=== PATIENT | female | born 1955 | race Caucasian/White ===

== ENCOUNTER 2016-08-28 14:50 | Inpatient (IN) | payer MEDICAID ==
[~2016-08-28] VITALS: Ht 167.6 cm; Wt 59.0 kg
[2016-08-28] MEDS ORDERED: IV NS 0.9% 1,000 ML BAG IV ONE ×2 (16:00→20:00)
[2016-08-28] MEDS ORDERED: ONDANSETRON HCL/PF 4 MG/2 ML VIAL IVP ONE (16:00)
[2016-08-28] MEDS ORDERED: ONDANSETRON HCL/PF 4 MG/2 ML VIAL ONE (16:11)
[2016-08-28] MEDS ORDERED: IV NS 0.9% 1,000 ML ONE ×2 (16:11→22:11)
[2016-08-28] MEDS ORDERED: IV SET PRIMARY PUMP SET 1 EA INFUS.SET MC ONE ×2 (16:11→22:11)
[2016-08-28 16:23] LABS: BASOPHILS # (AUTO) 0.1 /CMM (0.0-0.2); DIFF TOTAL % 100 %; EOSINOPHILS % (AUTO) 0.2 % (0.0-6.0); HEMATOCRIT 35 % (33-45); HEMOGLOBIN 11.6 g/dL (11.5-14.8); LYMPHOCYTES # (AUTO) 1.9 /CMM (0.8-4.8); LYMPHOCYTES % (AUTO) 12.9 % (20.0-44.0); MEAN CORPUSCULAR HEMOGLOBIN 28 PG (26.0-33.0); MEAN CORPUSCULAR HGB CONC 33 g/dl (31.0-36.0); MEAN CORPUSCULAR VOLUME 85 fL (82-100); MONOCYTES # (AUTO) 1.4 /CMM (0.1-1.30); NEUTROPHILS % (AUTO) 75.9 % (43.0-81.0); PLATELET COUNT (AUTO) 437 /CMM (150-450); RED BLOOD CELL COUNT(AUTO) 4.18 MIL/uL (4.0-5.2); WHITE BLOOD COUNT (AUTO) 14.4 K/uL (4.3-11.0)
[2016-08-28] MEDS ORDERED: CALC600T12 PO (16:23)
[2016-08-28] MEDS ORDERED: CHOL400T11 PO (16:23)
[2016-08-28 16:40] LABS: ANION GAP 15 (5-14); CALCIUM, SERUM 9.2 mg/dL (8.5-10.1); CARBON DIOXIDE 25 mmol/L (21-32); CHLORIDE 95 mmol/L (98-107); CREATININE 0.5 mg/dL (0.6-1.3); GFR 125 mL/min (>60); GLUCOSE 96 mg/dL (74-106); POTASSIUM 3.7 mmol/L (3.5-5.1); SODIUM SERUM 131 mmol/L (136-145); UREA NITROGEN, BLOOD 17 mg/dL (7-18)
[2016-08-28 16:42] LABS: INR 1.19 (0.87-1.13); PROTHROMBIN TIME 12.5 SECS (9.5-12.7)
[2016-08-28 16:46] LABS: ALANINE AMINOTRANSFERASE 49 U/L (12-78); ALBUMIN 2.2 g/dL (3.4-5.0); ASPARTATE AMINOTRANSFERASE 132 U/L (15-37); BILIRUBIN,DIRECT 0.3 mg/dL (0.0-0.2); BILIRUBIN,TOTAL 0.8 mg/dL (0.2-1.0); INDIRECT BILIRUBIN 0.5 mg/dL (0.0-1.1); TOTAL PROTEIN, SERUM 7.2 g/dL (6.4-8.2)
[2016-08-28 17:20] LABS: TROPONIN I < 0.017 ng/mL (0.00-0.056)
[2016-08-28] MEDS ORDERED: ONDANSETRON HCL/PF 4 MG/2 ML VIAL IV PRN (20:00)
[2016-08-28] MEDS ORDERED: IBUP100O14 PO (21:10)
[2016-08-28] MEDS ORDERED: IBUP100T8 PO (21:14)
[2016-08-28] MEDS ORDERED: IV NS 0.9% 1,000 ML IV SCH (21:30)
[2016-08-28 22:00] VITALS: BP 120/88
[2016-08-28] MEDS ORDERED: ENOXAPARIN SODIUM 30 MG/0.3 ML DISP.SYRIN SQ SCH (22:30)
[2016-08-28] MEDS ORDERED: ENOXAPARIN SODIUM 30 MG/0.3 ML DISP.SYRIN ONE (23:24)
[2016-08-28] MEDS: IV NS 0.9% 1,000 ML IV SCH (23:30)
[2016-08-28] MEDS ORDERED: IBUPROFEN 600 MG TABLET PO ONE (23:34)
[2016-08-29] MEDS ORDERED: ACETAMINOPHEN 325 MG TABLET PO PRN
[2016-08-29] MEDS ORDERED: IBUPROFEN 600 MG TABLET PO PRN
[2016-08-29 04:00] VITALS: BP 125/78
[2016-08-29] MEDS ORDERED: IV NS 0.9% 1,000 ML ONE (05:43)
[2016-08-29] MEDS: IV NS 0.9% 1,000 ML IV SCH ×3 (06:30→18:09)
[2016-08-29 08:00] VITALS: BP 103/71
[2016-08-29] MEDS ORDERED: Z GUARD REMEDY 2 OZ OINT TP PRN (08:30)
[2016-08-29 16:00] VITALS: BP 120/73
[2016-08-29] MEDS: CALCIUM CARBONATE (1250) 500 MG TABLET PO SCH (16:16)
[2016-08-29] MEDS: CHOLECALCIFEROL (VITAMIN D 3) 400 UNIT TABLET PO SCH (16:16)
[2016-08-29] MEDS: ONDANSETRON HCL/PF 4 MG/2 ML VIAL IV PRN (18:49)
[2016-08-29 20:00] VITALS: BP 118/73
[2016-08-29] MEDS: ENOXAPARIN SODIUM 30 MG/0.3 ML DISP.SYRIN SQ SCH (22:46)
[2016-08-29] MEDS ORDERED: HYDROCODONE/APAP 5/325MG 1 EACH TABLET PO PRN (23:00)
[2016-08-29] MEDS ORDERED: SOD FERRIC GLUC 125 MG in IV NS 0.9% 100 ML IV SCH (23:00)
[2016-08-29] MEDS ORDERED: Magnesium 1GM/D5W 100ML PREMIX PIGGYBACK IV ONE (23:00)
[2016-08-29] MEDS ORDERED: SOD FERRIC GLUC 62.5 MG/5 ML AMPUL IV ONE (23:09)
[2016-08-29] MEDS ORDERED: IV NS 0.9% 100 ML IV ONE (23:46)
[2016-08-29] MEDS ORDERED: Magnesium 1GM/D5W 100ML PREMIX 200 ML IV ONE (23:47)
[2016-08-29] MEDS ORDERED: SECONDARY IV SET 1 EA INFUS.SET MC ONE (23:56)
[2016-08-29] MEDS ORDERED: IV SET PRIMARY PUMP SET 1 EA INFUS.SET MC ONE (23:57)
[2016-08-30] MEDS: Magnesium 1GM/D5W 100ML PREMIX 100 ML IV SCH ×2 (00:05→01:51)
[2016-08-30] MEDS ORDERED: SOD FERRIC GLUC 62.5 MG/5 ML AMPUL IV ONE (00:05)
[2016-08-30] MEDS ORDERED: LIDOCAINE 5% (PATCH) 1 EA PATCH TP ONE (00:06)
[2016-08-30] MEDS ORDERED: SECONDARY IV SET 1 EA INFUS.SET MC ONE (00:14)
[2016-08-30] MEDS: LIDOCAINE 5% (PATCH) 1 EA PATCH TP SCH ×2 (00:20→23:05)
[2016-08-30 04:00] VITALS: BP 120/73
[2016-08-30 06:40] LABS: BASOPHILS % (AUTO) 0.3 % (0.0-2.0); DIFF TOTAL % 100 %; EOSINOPHILS % (AUTO) 0.3 % (0.0-6.0); HEMATOCRIT 29 % (33-45); HEMOGLOBIN 9.6 g/dL (11.5-14.8); LYMPHOCYTES # (AUTO) 1.7 /CMM (0.8-4.8); LYMPHOCYTES % (AUTO) 15.8 % (20.0-44.0); MEAN CORPUSCULAR HEMOGLOBIN 28 PG (26.0-33.0); MEAN CORPUSCULAR HGB CONC 33 g/dl (31.0-36.0); MEAN CORPUSCULAR VOLUME 86 fL (82-100); MONOCYTES # (AUTO) 1.5 /CMM (0.1-1.30); MONOCYTES % (AUTO) 13.7 % (2.0-12.0); NEUTROPHILS # (AUTO) 7.6 /CMM (1.8-8.9); NEUTROPHILS % (AUTO) 69.9 % (43.0-81.0); PLATELET COUNT (AUTO) 361 /CMM (150-450); RED BLOOD CELL COUNT(AUTO) 3.42 MIL/uL (4.0-5.2); WHITE BLOOD COUNT (AUTO) 10.9 K/uL (4.3-11.0)
[2016-08-30 06:49] LABS: ALBUMIN 1.7 g/dL (3.4-5.0); BILIRUBIN,TOTAL 0.6 mg/dL (0.2-1.0); CALCIUM, SERUM 7.6 mg/dL (8.5-10.1); CREATININE 0.5 mg/dL (0.6-1.3); POTASSIUM 3.3 mmol/L (3.5-5.1); TOTAL PROTEIN, SERUM 5.9 g/dL (6.4-8.2)
[2016-08-30 07:49] LABS: KETONES,URINE NEGATIVE (NEGATIVE); LEUKOCYTE ESTERASE ,URINE NEGATIVE (NEGATIVE)
[2016-08-30 07:50] LABS: ADD UA MICROSCOPIC YES
[2016-08-30 07:54] LABS: ADD URINE CULTURE NO; RBC,URINE 0-2 /HPF (0-2); WBC,URINE NONE SEEN /HPF (0-3)
[2016-08-30 08:00] VITALS: BP 114/71
[2016-08-30] MEDS: CALCIUM CARBONATE (1250) 500 MG TABLET PO SCH ×2 (09:40→17:44)
[2016-08-30] MEDS: CHOLECALCIFEROL (VITAMIN D 3) 400 UNIT TABLET PO SCH ×2 (09:40→17:44)
[2016-08-30] MEDS: IV NS 0.9% 1,000 ML IV SCH ×2 (10:25→23:05)
[2016-08-30] MEDS: ONDANSETRON HCL/PF 4 MG/2 ML VIAL IV PRN (12:12)
[2016-08-30] MEDS ORDERED: POTASSIUM CHLORIDE 20 MEQ TAB.PRT.SR PO SCH (14:00)
[2016-08-30] MEDS: SOD FERRIC GLUC 125 MG in IV NS 0.9% 100 ML IV SCH (14:43)
[2016-08-30 16:00] VITALS: BP 123/74
[2016-08-30 20:00] VITALS: BP 122/81
[2016-08-30] MEDS: POLYETHYLENE GLYCOL 3350 17 GM POWD.PACK PO SCH (21:12)
[2016-08-30] MEDS: ENOXAPARIN SODIUM 30 MG/0.3 ML DISP.SYRIN SQ SCH (21:13)
[2016-08-31 07:57] LABS: CALCIUM, SERUM 8.3 mg/dL (8.5-10.1); CREATININE 0.5 mg/dL (0.6-1.3); POTASSIUM 3.6 mmol/L (3.5-5.1)
[2016-08-31 08:00] VITALS: BP 127/85
[2016-08-31] MEDS: CHOLECALCIFEROL (VITAMIN D 3) 400 UNIT TABLET PO SCH ×2 (08:37→16:50)
[2016-08-31] MEDS: CALCIUM CARBONATE (1250) 500 MG TABLET PO SCH ×2 (08:37→16:50)
[2016-08-31] MEDS: IV NS 0.9% 1,000 ML IV SCH (12:10)
[2016-08-31 16:00] VITALS: BP 124/79
[2016-08-31] MEDS: SOD FERRIC GLUC 125 MG in IV NS 0.9% 100 ML IV SCH (16:07)
[2016-08-31 20:00] VITALS: BP 139/85
[2016-08-31] MEDS: ENOXAPARIN SODIUM 30 MG/0.3 ML DISP.SYRIN SQ SCH (21:00)
[2016-08-31] MEDS: POLYETHYLENE GLYCOL 3350 17 GM POWD.PACK PO SCH (21:03)
[2016-08-31] MEDS ORDERED: LIDOCAINE 5% (PATCH) 1 EA PATCH TP SCH (21:30)
[2016-08-31 22:00] VITALS: BP 139/85
[2016-09-01] MEDS: IV NS 0.9% 1,000 ML IV SCH ×2 (01:42→12:23)
[2016-09-01 07:02] LABS: ALBUMIN 1.8 g/dL (3.4-5.0); BILIRUBIN,TOTAL 0.6 mg/dL (0.2-1.0); CALCIUM, SERUM 8.4 mg/dL (8.5-10.1); CREATININE 0.5 mg/dL (0.6-1.3); POTASSIUM 3.8 mmol/L (3.5-5.1); TOTAL PROTEIN, SERUM 6.2 g/dL (6.4-8.2)
[2016-09-01 08:00] VITALS: BP 136/83
[2016-09-01] MEDS: CHOLECALCIFEROL (VITAMIN D 3) 400 UNIT TABLET PO SCH ×2 (08:51→16:18)
[2016-09-01] MEDS: CALCIUM CARBONATE (1250) 500 MG TABLET PO SCH ×2 (08:51→16:18)
[2016-09-01] MEDS: Magnesium 1GM/D5W 100ML PREMIX 100 ML IV SCH ×2 (12:06→13:17)
[2016-09-01 16:00] VITALS: BP_SYST 109; BP_SYST 112; BP_DIAS 68; BP_DIAS 71
[2016-09-01] MEDS ORDERED: SOD FERRIC GLUC 125 MG in IV NS 0.9% 100 ML IV ONE (16:30)
== END 2016-09-01 19:45 | disposition home health service (06) | DRG 422 ==
LOC: ER 14:51 → MED 18:41
PROVIDERS: ADMIT Family Medicine; ATTEND Family Medicine
DX: E86.0 Dehydration (principal); R64 Cachexia; J90 Pleural effusion, not elsewhere classified; I95.9 Hypotension, unspecified; C50.912 Malignant neoplasm of unspecified site of left female breast; E44.0 Moderate protein-calorie malnutrition; N39.0 Urinary tract infection, site not specified; G62.9 Polyneuropathy, unspecified; E87.1 Hypo-osmolality and hyponatremia; G47.33 Obstructive sleep apnea (adult) (pediatric); R32 Unspecified urinary incontinence; E87.6 Hypokalemia; I10 Essential (primary) hypertension; M81.0 Age-related osteoporosis without current pathological fracture; Z90.12 Acquired absence of left breast and nipple; Z85.3 Personal history of malignant neoplasm of breast; D64.9 Anemia, unspecified; R00.0 Tachycardia, unspecified; M19.90 Unspecified osteoarthritis, unspecified site; M70.62 Trochanteric bursitis, left hip; E83.42 Hypomagnesemia; Z68.21 Body mass index [BMI] 21.0-21.9, adult; R51 Headache; I25.10 Atherosclerotic heart disease of native coronary artery without angina pectoris; R91.8 Other nonspecific abnormal finding of lung field
CPT/HCPCS: 36415; 71010-TC; 80048-TC; 80053-TC; 80076-TC; 81000-TC; 82746; 83540-TC; 83735-TC; 84484-TC; 85025-TC; 85730-TC; 87081-TC; 87086-TC; 92611-TC; 97001-TC; 97116-TC; 97530-TC; A4606; J1650; J2405; J2916; J3475; J7030; Z7610

== ENCOUNTER 2016-09-04 12:52 | Inpatient (IN) | payer MEDICAID ==
[~2016-09-04] VITALS: Ht 165.1 cm; Wt 49.9 kg
[~2016-09-04 12:52] MED LIST: CALC600T12 PO; CHOL400T11 PO; IBUP100T8 PO
[2016-09-04] MEDS ORDERED: MORPHINE SULFATE INJ 4 MG/ML DISP.SYRIN ONE (14:49)
[2016-09-04] MEDS ORDERED: IV NS 0.9% 500 ML IV ONE (14:50)
[2016-09-04] MEDS ORDERED: ONDANSETRON HCL/PF 4 MG/2 ML VIAL ONE (14:50)
[2016-09-04] MEDS ORDERED: ONDANSETRON HCL/PF 4 MG/2 ML VIAL IVP ONE (15:00)
[2016-09-04] MEDS ORDERED: MORPHINE SULFATE INJ 2 MG/ML DISP.SYRIN IV ONE (15:00)
[2016-09-04] MEDS ORDERED: IV NS 0.9% 500 ML BAG IV ONE (15:00)
[2016-09-04 15:13] LABS: BASOPHILS # (AUTO) 0.5 /CMM (0.0-0.2); BASOPHILS % (AUTO) 2.8 % (0.0-2.0); DIFF TOTAL % 100 %; EOSINOPHILS % (AUTO) 0.1 % (0.0-6.0); HEMATOCRIT 31 % (33-45); HEMOGLOBIN 10.2 g/dL (11.5-14.8); LYMPHOCYTES # (AUTO) 2.2 /CMM (0.8-4.8); LYMPHOCYTES % (AUTO) 11.4 % (20.0-44.0); MEAN CORPUSCULAR HEMOGLOBIN 28 PG (26.0-33.0); MEAN CORPUSCULAR HGB CONC 33 g/dl (31.0-36.0); MEAN CORPUSCULAR VOLUME 84 fL (82-100); MONOCYTES # (AUTO) 1.8 /CMM (0.1-1.30); MONOCYTES % (AUTO) 9.4 % (2.0-12.0); NEUTROPHILS # (AUTO) 14.4 /CMM (1.8-8.9); NEUTROPHILS % (AUTO) 76.3 % (43.0-81.0); PLATELET COUNT (AUTO) 378 /CMM (150-450); RED BLOOD CELL COUNT(AUTO) 3.62 MIL/uL (4.0-5.2); WHITE BLOOD COUNT (AUTO) 18.9 K/uL (4.3-11.0)
[2016-09-04 15:20] LABS: ANION GAP 14 (5-14); CALCIUM, SERUM 8.7 mg/dL (8.5-10.1); CARBON DIOXIDE 26 mmol/L (21-32); CHLORIDE 97 mmol/L (98-107); CREATININE 0.6 mg/dL (0.6-1.3); GFR 101 mL/min (>60); GLUCOSE 122 mg/dL (74-106); POTASSIUM 3.5 mmol/L (3.5-5.1); SODIUM SERUM 133 mmol/L (136-145); UREA NITROGEN, BLOOD 21 mg/dL (7-18)
[2016-09-04] MEDS ORDERED: IOHEXOL-350 100 ML VIAL IV ONE (15:22)
[2016-09-04] MEDS ORDERED: CT SWABBABLE VALVE TRANS SET 1 EA INFUS.SET MC ONE (15:23)
[2016-09-04] MEDS ORDERED: IV NS 0.9% 250 ML IV ONE (15:23)
[2016-09-04 15:25] LABS: ALANINE AMINOTRANSFERASE 41 U/L (12-78); ALBUMIN 1.9 g/dL (3.4-5.0); ASPARTATE AMINOTRANSFERASE 122 U/L (15-37); BILIRUBIN,DIRECT 0.5 mg/dL (0.0-0.2); BILIRUBIN,TOTAL 1.1 mg/dL (0.2-1.0); INDIRECT BILIRUBIN 0.6 mg/dL (0.0-1.1); INR 1.36 (0.87-1.13); PROTHROMBIN TIME 14.3 SECS (9.5-12.7); TOTAL PROTEIN, SERUM 6.7 g/dL (6.4-8.2)
[2016-09-04 15:30] LABS: TROPONIN I < 0.017 ng/mL (0.00-0.056)
[2016-09-04 15:31] LABS: LACTIC ACID 1.4 mmol/L (0.4-2.0)
[2016-09-04 15:51] LABS: LYMPHOCYTES % (MANUAL) 10 % (16-48); PLATELET ESTIMATE ADEQUATE
[2016-09-04] MEDS ORDERED: PIPERACILLIN /TAZOBACTAM 3.375 G in IV D5W 50 ML IV ONE (18:00)
[2016-09-04] MEDS ORDERED: VANCOMYCIN 1 GM in IV D5W 250 ML IV ONE (18:00)
[2016-09-04] MEDS ORDERED: LEVOFLOXACIN 500 MG /D5W 100ML 100 ML IV ONE (21:04)
[2016-09-04] MEDS ORDERED: IV SET PRIMARY PUMP SET 1 EA INFUS.SET MC ONE (21:04)
[2016-09-04 21:20] VITALS: BP 118/79
[2016-09-04] MEDS ORDERED: LEVOFLOXACIN 500 MG /D5W 100ML 500 MG in PREMIX 1 EA IV SCH (21:30)
[2016-09-04] MEDS: LEVOFLOXACIN 500 MG /D5W 100ML 500 MG in PREMIX 1 EA IV SCH (21:44)
[2016-09-04] MEDS ORDERED: Z GUARD REMEDY 2 OZ OINT TP PRN (22:00)
[2016-09-04] MEDS ORDERED: ACETAMINOPHEN 325 MG TABLET PO PRN (22:00)
[2016-09-04] MEDS ORDERED: MAGNESIUM HYDROXIDE 30 ML UDC PO PRN (22:00)
[2016-09-04] MEDS ORDERED: ONDANSETRON HCL/PF 4 MG/2 ML VIAL IVP PRN (22:00)
[2016-09-04] MEDS ORDERED: ZOLPIDEM TARTRATE 5 MG TABLET PO PRN (22:00)
[2016-09-04] MEDS ORDERED: MAG HYDROX/AL HYDROX/SIMETH 30 ML UDC PO PRN (22:00)
[2016-09-04] MEDS ORDERED: HYDROCODONE/APAP 5/325MG 1 EACH TABLET PO PRN (22:00)
[2016-09-04 22:07] VITALS: BP 118/79
[2016-09-04] MEDS ORDERED: FUROSEMIDE 40 MG/4 ML VIAL IV ONE (23:30)
[2016-09-05] VITALS: BP 124/77
[2016-09-05] MEDS ORDERED: PIPERACILLIN /TAZOBACTAM 3.375 G VIAL IV ONE ×2 (00:04→05:00)
[2016-09-05] MEDS ORDERED: IV SET PRIMARY PUMP SET 1 EA INFUS.SET MC ONE (00:09)
[2016-09-05] MEDS ORDERED: IV D5W 50 ML IV ONE ×2 (00:09→05:02)
[2016-09-05] MEDS ORDERED: IV NS 0.9% 250 ML IV ONE (00:09)
[2016-09-05] MEDS ORDERED: SECONDARY IV SET 1 EA INFUS.SET MC ONE ×2 (00:10→22:48)
[2016-09-05] MEDS: PIPERACILLIN /TAZOBACTAM 3.375 G in IV D5W 50 ML IV SCH ×4 (00:23→17:38)
[2016-09-05 04:00] VITALS: BP 116/81
[2016-09-05 06:37] LABS: BASOPHILS # (AUTO) 0.1 /CMM (0.0-0.2); BASOPHILS % (AUTO) 0.4 % (0.0-2.0); DIFF TOTAL % 100 %; EOSINOPHILS % (AUTO) 0.1 % (0.0-6.0); HEMATOCRIT 31 % (33-45); LYMPHOCYTES # (AUTO) 1.9 /CMM (0.8-4.8); LYMPHOCYTES % (AUTO) 11.1 % (20.0-44.0); MEAN CORPUSCULAR HEMOGLOBIN 28 PG (26.0-33.0); MEAN CORPUSCULAR HGB CONC 32 g/dl (31.0-36.0); MEAN CORPUSCULAR VOLUME 86 fL (82-100); MONOCYTES # (AUTO) 1.7 /CMM (0.1-1.30); NEUTROPHILS # (AUTO) 13.6 /CMM (1.8-8.9); NEUTROPHILS % (AUTO) 78.4 % (43.0-81.0); PLATELET COUNT (AUTO) 375 /CMM (150-450); WHITE BLOOD COUNT (AUTO) 17.3 K/uL (4.3-11.0)
[2016-09-05 07:16] LABS: CALCIUM, SERUM 8.3 mg/dL (8.5-10.1); CREATININE 0.6 mg/dL (0.6-1.3); PHOSPHORUS 3.9 mg/dL (2.5-4.9)
[2016-09-05 08:00] VITALS: BP 122/83
[2016-09-05] MEDS ORDERED: IBUPROFEN 600 MG TABLET PO PRN ×2 (08:30→08:33)
[2016-09-05] MEDS: CALCIUM CARB 600MG /VIT D 1 EACH TABLET PO SCH ×2 (09:16→16:05)
[2016-09-05] MEDS: VANCOMYCIN 0.75 GM in IV D5W 250 ML IV SCH ×2 (09:16→20:57)
[2016-09-05] MEDS: CHOLECALCIFEROL (VITAMIN D 3) 400 UNIT TABLET PO SCH ×2 (09:16→16:05)
[2016-09-05] MEDS ORDERED: Magnesium 1GM/D5W 100ML PREMIX 100 ML IV SCH (10:48)
[2016-09-05] MEDS ORDERED: FEE PK DOSING 1 MIN EA MC ONE (11:15)
[2016-09-05] MEDS: POTASSIUM CHLORIDE 20 MEQ TAB.PRT.SR PO SCH ×3 (11:24→14:40)
[2016-09-05] MEDS ORDERED: MAGNESIUM OXIDE 400 MG TABLET PO SCH (11:30)
[2016-09-05 12:00] VITALS: BP 112/77
[2016-09-05] MEDS ORDERED: Z GUARD REMEDY 4 OZ OINT TP PRN (13:30)
[2016-09-05 16:00] VITALS: BP 114/70
[2016-09-05 16:03] LABS: GLUCOSE,BODY FLUID 113 mg/dL; LDH, BODY FLUID 199 U/L; PROTEIN, BODY FLUID 3.5 G/DL
[2016-09-05] MEDS: Z GUARD REMEDY 2 OZ OINT TP SCH (16:07)
[2016-09-05 16:49] LABS: APPEARANCE,UNSPUN,BODY FLUID HAZY (CLEAR); COLOR,BODY FLUID YELLOW (LT YELLOW); WBC, BODY FLUID 1010 /cu. mm. (0-200)
[2016-09-05 16:50] LABS: RBC, BODY FLUID 5000 /cu. mm. (0-2000)
[2016-09-05 17:43] LABS: POLYNUCLEAR, BODY FLUID 55 % (0-25)
[2016-09-05 20:00] VITALS: BP_SYST 91; BP_SYST 92; BP_DIAS 49; BP_DIAS 57
[2016-09-05] MEDS: LEVOFLOXACIN 500 MG /D5W 100ML 500 MG in PREMIX 1 EA IV SCH (22:49)
[2016-09-06] VITALS: BP 97/68
[2016-09-06] MEDS: PIPERACILLIN /TAZOBACTAM 3.375 G in IV D5W 50 ML IV SCH ×4 (00:14→18:25)
[2016-09-06 04:00] VITALS: BP 106/67
[2016-09-06 08:00] VITALS: BP 97/60
[2016-09-06] MEDS ORDERED: HYDROMORPHONE 1 MG/1 ML DISP.SYRIN IV PRN (08:30)
[2016-09-06] MEDS: CHOLECALCIFEROL (VITAMIN D 3) 400 UNIT TABLET PO SCH ×2 (08:33→16:48)
[2016-09-06] MEDS: CALCIUM CARB 600MG /VIT D 1 EACH TABLET PO SCH ×2 (08:33→16:47)
[2016-09-06] MEDS: VANCOMYCIN 0.75 GM in IV D5W 250 ML IV SCH ×2 (08:33→21:27)
[2016-09-06] MEDS: Z GUARD REMEDY 2 OZ OINT TP SCH ×2 (08:38→16:54)
[2016-09-06 10:06] LABS: BASOPHILS % (AUTO) 0.2 % (0.0-2.0); DIFF TOTAL % 100 %; EOSINOPHILS % (AUTO) 0.2 % (0.0-6.0); HEMATOCRIT 29 % (33-45); HEMOGLOBIN 9.4 g/dL (11.5-14.8); LYMPHOCYTES # (AUTO) 1.9 /CMM (0.8-4.8); LYMPHOCYTES % (AUTO) 16.2 % (20.0-44.0); MEAN CORPUSCULAR HEMOGLOBIN 27 PG (26.0-33.0); MEAN CORPUSCULAR HGB CONC 32 g/dl (31.0-36.0); MEAN CORPUSCULAR VOLUME 85 fL (82-100); MONOCYTES # (AUTO) 1.2 /CMM (0.1-1.30); MONOCYTES % (AUTO) 10.4 % (2.0-12.0); NEUTROPHILS # (AUTO) 8.7 /CMM (1.8-8.9); PLATELET COUNT (AUTO) 341 /CMM (150-450); RED BLOOD CELL COUNT(AUTO) 3.45 MIL/uL (4.0-5.2); WHITE BLOOD COUNT (AUTO) 11.9 K/uL (4.3-11.0)
[2016-09-06 10:56] LABS: CALCIUM, SERUM 8.1 mg/dL (8.5-10.1); CREATININE 0.7 mg/dL (0.6-1.3); POTASSIUM 3.3 mmol/L (3.5-5.1)
[2016-09-06] MEDS ORDERED: IV NS 0.9% 250 ML IV ONE (10:58)
[2016-09-06 16:00] VITALS: BP 101/64
[2016-09-06] MEDS ORDERED: oxyCODONE IR immediate release 5 MG CAPSULE PO PRN (16:30)
[2016-09-06] MEDS: oxyCODONE IR immediate release 5 MG CAPSULE PO PRN (16:48)
[2016-09-06] MEDS: DOCUSATE SODIUM 100 MG CAPSULE PO SCH (16:51)
[2016-09-06] MEDS ORDERED: SENNOSIDES/DOCUSATE SODIUM 1 TAB TABLET PO PRN (17:00)
[2016-09-06] MEDS ORDERED: SENNOSIDES 8.6 MG TABLET PO PRN (17:00)
[2016-09-06] MEDS ORDERED: POTASSIUM CHLORIDE 20 MEQ TAB.PRT.SR PO ONE (18:00)
[2016-09-06 20:00] VITALS: BP 109/69
[2016-09-06] MEDS: NORTRIPTYLINE HCL 10 MG CAPSULE PO SCH (21:27)
[2016-09-06] MEDS: IBUPROFEN 400 MG TABLET PO SCH (21:28)
[2016-09-06] MEDS: LEVOFLOXACIN 500 MG /D5W 100ML 500 MG in PREMIX 1 EA IV SCH (22:30)
[2016-09-07] MEDS: PIPERACILLIN /TAZOBACTAM 3.375 G in IV D5W 50 ML IV SCH ×2 (00:47→05:14)
[2016-09-07] MEDS: IBUPROFEN 400 MG TABLET PO SCH ×4 (03:46→21:00)
[2016-09-07 04:00] VITALS: BP 90/58
[2016-09-07] MEDS ORDERED: IV NS 0.9% 250 ML IV ONE (04:13)
[2016-09-07 06:54] LABS: BASOPHILS % (AUTO) 0.3 % (0.0-2.0); DIFF TOTAL % 100 %; EOSINOPHILS # (AUTO) 0.1 /CMM (0.0-0.7); EOSINOPHILS % (AUTO) 0.6 % (0.0-6.0); HEMATOCRIT 29 % (33-45); HEMOGLOBIN 9.2 g/dL (11.5-14.8); LYMPHOCYTES # (AUTO) 2.2 /CMM (0.8-4.8); LYMPHOCYTES % (AUTO) 19.1 % (20.0-44.0); MEAN CORPUSCULAR HEMOGLOBIN 28 PG (26.0-33.0); MEAN CORPUSCULAR HGB CONC 32 g/dl (31.0-36.0); MEAN CORPUSCULAR VOLUME 87 fL (82-100); MONOCYTES # (AUTO) 1.3 /CMM (0.1-1.30); MONOCYTES % (AUTO) 11.1 % (2.0-12.0); NEUTROPHILS # (AUTO) 8.1 /CMM (1.8-8.9); NEUTROPHILS % (AUTO) 68.9 % (43.0-81.0); PLATELET COUNT (AUTO) 352 /CMM (150-450); RED BLOOD CELL COUNT(AUTO) 3.36 MIL/uL (4.0-5.2); WHITE BLOOD COUNT (AUTO) 11.8 K/uL (4.3-11.0)
[2016-09-07 07:26] LABS: CALCIUM, SERUM 8.2 mg/dL (8.5-10.1); CREATININE 0.6 mg/dL (0.6-1.3); POTASSIUM 4.1 mmol/L (3.5-5.1)
[2016-09-07 08:00] VITALS: BP 96/62
[2016-09-07] MEDS: Z GUARD REMEDY 2 OZ OINT TP SCH ×2 (08:18→17:06)
[2016-09-07] MEDS: CALCIUM CARB 600MG /VIT D 1 EACH TABLET PO SCH ×2 (08:18→17:06)
[2016-09-07] MEDS: CHOLECALCIFEROL (VITAMIN D 3) 400 UNIT TABLET PO SCH ×2 (08:18→17:06)
[2016-09-07] MEDS: DOCUSATE SODIUM 100 MG CAPSULE PO SCH ×2 (08:18→17:06)
[2016-09-07] MEDS: VANCOMYCIN 0.75 GM in IV D5W 250 ML IV SCH (08:18)
[2016-09-07 12:33] LABS: ABG BASE EXCESS 3.7 mmol/L; ABG HCO3 27.4 mmol/L; ABG PCO2 37.7 mmHg (35.0-45.0); ABG PH 7.479 (7.350-7.450); ABG TOTAL HEMOGLOBIN 10.9 G/dL (12.0-16.0); AaDO2 36.6 mmHg; O2Hb 91.6 % (94.0-97.0)
[2016-09-07 16:00] VITALS: BP 89/62
[2016-09-07 17:16] VITALS: BP 93/61
[2016-09-07] MEDS: LEVOFLOXACIN (500MG) 500 MG TABLET PO SCH (18:03)
[2016-09-07 20:00] VITALS: BP 95/60
[2016-09-07] MEDS: ZOLPIDEM TARTRATE 5 MG TABLET PO SCH (21:05)
[2016-09-07] MEDS: NORTRIPTYLINE HCL 10 MG CAPSULE PO SCH (21:05)
[2016-09-08] VITALS: BP 96/65
[2016-09-08] MEDS: IBUPROFEN 400 MG TABLET PO SCH ×4 (03:00→21:00)
[2016-09-08 04:00] VITALS: BP 94/65
[2016-09-08 06:18] LABS: BASOPHILS % (AUTO) 0.2 % (0.0-2.0); DIFF TOTAL % 100 %; EOSINOPHILS % (AUTO) 0.3 % (0.0-6.0); HEMATOCRIT 31 % (33-45); HEMOGLOBIN 10.1 g/dL (11.5-14.8); LYMPHOCYTES # (AUTO) 1.8 /CMM (0.8-4.8); LYMPHOCYTES % (AUTO) 11.7 % (20.0-44.0); MEAN CORPUSCULAR HEMOGLOBIN 28 PG (26.0-33.0); MEAN CORPUSCULAR HGB CONC 32 g/dl (31.0-36.0); MEAN CORPUSCULAR VOLUME 85 fL (82-100); MONOCYTES # (AUTO) 1.5 /CMM (0.1-1.30); NEUTROPHILS % (AUTO) 77.8 % (43.0-81.0); PLATELET COUNT (AUTO) 326 /CMM (150-450); RED BLOOD CELL COUNT(AUTO) 3.67 MIL/uL (4.0-5.2); WHITE BLOOD COUNT (AUTO) 15.4 K/uL (4.3-11.0)
[2016-09-08 06:40] LABS: CALCIUM, SERUM 8.7 mg/dL (8.5-10.1); CREATININE 0.5 mg/dL (0.6-1.3); POTASSIUM 4.6 mmol/L (3.5-5.1)
[2016-09-08 08:00] VITALS: BP 100/71
[2016-09-08] MEDS: DOCUSATE SODIUM 100 MG CAPSULE PO SCH ×2 (09:07→16:57)
[2016-09-08] MEDS: CHOLECALCIFEROL (VITAMIN D 3) 400 UNIT TABLET PO SCH ×2 (09:07→16:57)
[2016-09-08] MEDS: CALCIUM CARB 600MG /VIT D 1 EACH TABLET PO SCH ×2 (09:07→16:57)
[2016-09-08] MEDS: Z GUARD REMEDY 2 OZ OINT TP SCH ×2 (09:10→16:58)
[2016-09-08] MEDS ORDERED: LEVO500T15 PO (14:21)
[2016-09-08 16:00] VITALS: BP 103/71
[2016-09-08] MEDS: LEVOFLOXACIN (500MG) 500 MG TABLET PO SCH (17:00)
[2016-09-08] MEDS: oxyCODONE IR immediate release 5 MG CAPSULE PO PRN (18:18)
[2016-09-08] MEDS ORDERED: BISACODYL (5 MG) 5 MG TABLET.DR PO PRN (18:30)
[2016-09-08 19:45] VITALS: BP 100/69
[2016-09-08 20:00] VITALS: BP 100/69
[2016-09-08] MEDS: ZOLPIDEM TARTRATE 5 MG TABLET PO SCH (21:08)
[2016-09-08] MEDS: NORTRIPTYLINE HCL 10 MG CAPSULE PO SCH (21:09)
[2016-09-09] MEDS: IBUPROFEN 400 MG TABLET PO SCH ×4 (02:39→20:51)
[2016-09-09 04:00] VITALS: BP 110/77
[2016-09-09 06:58] LABS: CALCIUM, SERUM 9.1 mg/dL (8.5-10.1); CREATININE 0.6 mg/dL (0.6-1.3); POTASSIUM 4.4 mmol/L (3.5-5.1)
[2016-09-09 07:12] LABS: BASOPHILS % (AUTO) 0.1 % (0.0-2.0); DIFF TOTAL % 100 %; EOSINOPHILS % (AUTO) 0.2 % (0.0-6.0); HEMATOCRIT 30 % (33-45); HEMOGLOBIN 9.9 g/dL (11.5-14.8); LYMPHOCYTES # (AUTO) 2.3 /CMM (0.8-4.8); LYMPHOCYTES % (AUTO) 12.2 % (20.0-44.0); MEAN CORPUSCULAR HEMOGLOBIN 28 PG (26.0-33.0); MEAN CORPUSCULAR HGB CONC 32 g/dl (31.0-36.0); MEAN CORPUSCULAR VOLUME 85 fL (82-100); MONOCYTES % (AUTO) 10.7 % (2.0-12.0); NEUTROPHILS # (AUTO) 14.2 /CMM (1.8-8.9); NEUTROPHILS % (AUTO) 76.8 % (43.0-81.0); PLATELET COUNT (AUTO) 341 /CMM (150-450); RED BLOOD CELL COUNT(AUTO) 3.56 MIL/uL (4.0-5.2); WHITE BLOOD COUNT (AUTO) 18.5 K/uL (4.3-11.0)
[2016-09-09 08:00] VITALS: BP 108/77
[2016-09-09] MEDS: CALCIUM CARB 600MG /VIT D 1 EACH TABLET PO SCH ×2 (08:10→17:20)
[2016-09-09] MEDS: CHOLECALCIFEROL (VITAMIN D 3) 400 UNIT TABLET PO SCH ×2 (08:10→17:21)
[2016-09-09] MEDS: Z GUARD REMEDY 2 OZ OINT TP SCH ×2 (08:10→17:21)
[2016-09-09] MEDS: DOCUSATE SODIUM 100 MG CAPSULE PO SCH ×2 (08:10→17:21)
[2016-09-09 16:00] VITALS: BP 97/64
[2016-09-09 20:00] VITALS: BP 113/67
[2016-09-09] MEDS: MEROPENEM 500 MG in IV NS 0.9% 50 ML IV SCH (20:34)
[2016-09-09] MEDS ORDERED: SECONDARY IV SET 1 EA INFUS.SET MC ONE (20:34)
[2016-09-09] MEDS: NORTRIPTYLINE HCL 10 MG CAPSULE PO SCH (22:09)
[2016-09-09] MEDS: ZOLPIDEM TARTRATE 5 MG TABLET PO SCH (22:09)
[2016-09-10] MEDS: IBUPROFEN 400 MG TABLET PO SCH ×4 (02:56→20:29)
[2016-09-10 04:00] VITALS: BP_SYST 130; BP_SYST 91; BP_DIAS 37; BP_DIAS 70
[2016-09-10 04:02] VITALS: BP 130/70
[2016-09-10] MEDS: MEROPENEM 500 MG in IV NS 0.9% 50 ML IV SCH ×3 (04:48→20:29)
[2016-09-10 07:22] LABS: CALCIUM, SERUM 9.6 mg/dL (8.5-10.1); CREATININE 0.5 mg/dL (0.6-1.3); POTASSIUM 4.2 mmol/L (3.5-5.1)
[2016-09-10 07:33] LABS: THYROID STIMULATING HORMONE 6.566 uIU/mL (0.358-3.74)
[2016-09-10 08:00] VITALS: BP 97/56
[2016-09-10] MEDS: DOCUSATE SODIUM 100 MG CAPSULE PO SCH ×2 (08:52→16:16)
[2016-09-10] MEDS: CHOLECALCIFEROL (VITAMIN D 3) 400 UNIT TABLET PO SCH ×2 (08:52→16:15)
[2016-09-10] MEDS: CALCIUM CARB 600MG /VIT D 1 EACH TABLET PO SCH ×2 (08:52→16:16)
[2016-09-10] MEDS: Z GUARD REMEDY 2 OZ OINT TP SCH ×2 (08:53→16:16)
[2016-09-10] MEDS ORDERED: BISACODYL SUPP (10 MG) 10 MG/SUPP.RECT SUPP.RECT RC PRN (18:00)
[2016-09-10 20:00] VITALS: BP 110/74
[2016-09-10] MEDS: FOLIC ACID 1 MG TABLET PO SCH (20:29)
[2016-09-10] MEDS: NORTRIPTYLINE HCL 10 MG CAPSULE PO SCH (20:29)
[2016-09-10] MEDS: ZOLPIDEM TARTRATE 5 MG TABLET PO SCH (22:00)
[2016-09-11] MEDS: IBUPROFEN 400 MG TABLET PO SCH ×3 (03:00→15:43)
[2016-09-11 04:00] VITALS: BP 111/72
[2016-09-11] MEDS: MEROPENEM 500 MG in IV NS 0.9% 50 ML IV SCH ×2 (04:30→13:18)
[2016-09-11 06:58] LABS: CALCIUM, SERUM 9.3 mg/dL (8.5-10.1); CREATININE 0.5 mg/dL (0.6-1.3)
[2016-09-11 07:02] LABS: BASOPHILS % (AUTO) 0.3 % (0.0-2.0); DIFF TOTAL % 100 %; EOSINOPHILS % (AUTO) 0.2 % (0.0-6.0); HEMATOCRIT 27 % (33-45); HEMOGLOBIN 8.8 g/dL (11.5-14.8); LYMPHOCYTES # (AUTO) 2.1 /CMM (0.8-4.8); LYMPHOCYTES % (AUTO) 16.2 % (20.0-44.0); MEAN CORPUSCULAR HEMOGLOBIN 28 PG (26.0-33.0); MEAN CORPUSCULAR HGB CONC 32 g/dl (31.0-36.0); MEAN CORPUSCULAR VOLUME 86 fL (82-100); MONOCYTES % (AUTO) 15.3 % (2.0-12.0); NEUTROPHILS # (AUTO) 8.7 /CMM (1.8-8.9); PLATELET COUNT (AUTO) 331 /CMM (150-450); WHITE BLOOD COUNT (AUTO) 12.8 K/uL (4.3-11.0)
[2016-09-11 08:00] VITALS: BP 112/74
[2016-09-11] MEDS: DOCUSATE SODIUM 100 MG CAPSULE PO SCH ×2 (08:52→17:34)
[2016-09-11] MEDS: CHOLECALCIFEROL (VITAMIN D 3) 400 UNIT TABLET PO SCH ×2 (08:52→17:34)
[2016-09-11] MEDS: CALCIUM CARB 600MG /VIT D 1 EACH TABLET PO SCH ×2 (08:52→17:34)
[2016-09-11] MEDS: FOLIC ACID 1 MG TABLET PO SCH (08:52)
[2016-09-11] MEDS: Z GUARD REMEDY 2 OZ OINT TP SCH ×2 (09:00→17:34)
[2016-09-11 11:13] LABS: *SPE ALBUMIN 1.8 g/dL (2.9-4.4)
[2016-09-11] MEDS ORDERED: MERO500V IV (13:10)
[2016-09-11 16:00] VITALS: BP 113/74
[2016-09-11 20:00] VITALS: BP 104/73
== END 2016-09-11 22:09 | disposition home or self-care (01) | DRG 143 ==
LOC: ER 12:53 → TELE-TD 20:39 → TELE1 21:57 → MEDSG1 09-06 08:29
PROVIDERS: ADMIT Family Medicine; ATTEND Family Medicine
DX: J90 Pleural effusion, not elsewhere classified (principal); N17.0 Acute kidney failure with tubular necrosis; E43 Unspecified severe protein-calorie malnutrition; J18.9 Pneumonia, unspecified organism; C78.2 Secondary malignant neoplasm of pleura; C78.7 Secondary malignant neoplasm of liver and intrahepatic bile duct; E86.0 Dehydration; F32.9 Major depressive disorder, single episode, unspecified; F43.10 Post-traumatic stress disorder, unspecified; Z90.12 Acquired absence of left breast and nipple; Z85.3 Personal history of malignant neoplasm of breast; J98.11 Atelectasis; R73.9 Hyperglycemia, unspecified; I25.10 Atherosclerotic heart disease of native coronary artery without angina pectoris; I10 Essential (primary) hypertension; K21.9 Gastro-esophageal reflux disease without esophagitis; G62.9 Polyneuropathy, unspecified; M81.0 Age-related osteoporosis without current pathological fracture; G89.3 Neoplasm related pain (acute) (chronic); M54.5 Low back pain; D64.9 Anemia, unspecified; G43.909 Migraine, unspecified, not intractable, without status migrainosus; Z92.21 Personal history of antineoplastic chemotherapy; Z92.3 Personal history of irradiation; K59.00 Constipation, unspecified; C79.51 Secondary malignant neoplasm of bone; Z90.710 Acquired absence of both cervix and uterus; Z68.1 Body mass index [BMI] 19.9 or less, adult
CPT/HCPCS: 36415; 36600; 71010-TC; 76700-TC; 76705-TC; 76942-TC; 80048-TC; 80061-TC; 80076-TC; 80202-TC; 82728-TC; 82746; 83540-TC; 83605-TC; 83690-TC; 83735-TC; 84100-TC; 84155; 84165; 84439-TC; 84443-TC; 84484-TC; 85025-TC; 85730-TC; 86300; 87040-TC; 87070-TC; 87081-TC; 87086-TC; 88305-TC; 88312-TC; 89051-TC; 97001-TC; A4216; A4606; J1170; J1940; J1956; J2185; J2270; J2405; J2543; J3370; J7040; J7050; J7060; Q9967; Z7610